=== PATIENT | female | born 1965 | race Caucasian/White ===

== ENCOUNTER 2018-11-04 10:36 | Inpatient (IN) ==
[2018-11-04 11:05] LABS: Basophils # 0.1 10*3/uL (0.0-0.2); Basophils % 0.8 % (0.0-0.8); Eosinophils % 0.1 % (0.00-10.9); Hematocrit 45.1 VOL% (35.7-47.0); Hemoglobin 14.9 GM/DL (12.0-16.0); Immature Granulocytes % 0.3 %; Immature Granulocytes Absolute 0.03 #; Lymphocytes # 1.7 10*3/uL (1.4-4.0); Lymphocytes % 17.3 % (21.3-54.2); Mean Corpuscular Hemoglobin 31 PG (27-34); Mean Corpuscular Volume 94.5 FL (87-102); Mean Platelet Volume 9.6 FL (9.6-12.0); Monocytes # 0.8 10*3/uL (0.11-0.8); Monocytes % 8.5 % (1.7-12.7); Platelet Count 305 T/CUMM (130-400); Red Blood Count 4.77 MC/CUMM (3.8-5.5); Red Cell Distribution Width 12.9 % (9.3-17.3); White Blood Count 9.6 T/CUMM (4-12)
[2018-11-04 11:23] LABS: Bilirubin,Total 0.8 MG/DL (0.2-1.0); Calcium 8.9 MG/DL (8.5-10.1); Osmolality,Calculated 276.5 MOS/KG (273-304); Total Protein 8.1 G/DL (6.4-8.3)
[2018-11-04 11:28] LABS: Apearance,Urine Slightly Hazy (Clear); Bacteria,Urine Occasional /HPF (Few); Bilirubin,Urine Negative (Negative); Blood, Urine Negative (Negative); Glucose,Urine (UA) Negative (Negative); Hyaline Casts,Urine 1 /LPF (0-3); Ketones,Urine 20 mg/dL (Negative); Mucus,Urine Occasional /LPF (Occasional); Nitrite,Urine Negative (Negative); Protein,Urine Negative; RBC,Urine 1 /HPF (0-4); Squamous Epithelial Cell,Urine Occasional /HPF (0-10); Urine Color Yellow (Yellow); Urine Specific Gravity 1.024 (1.001-1.035); Urine Urobilinogen < 2.0 EU/DL (0.2-1.0); WBC,Urine 7 /HPF (0-6)
[2018-11-04] MEDS ORDERED: GENTAMICIN INJ 120 MG in SODIUM CHLORIDE 0.9% 100 ML IV STA (12:41)
[2018-11-04] MEDS ORDERED: SODIUM CHLORIDE 0.9% 1,000 ML IV STA (13:04)
[2018-11-04] MEDS ORDERED: ACETAMINOPHEN 325 MG TABLET PO PRN (15:12)
[2018-11-04] MEDS: FAMOTIDINE 20 MG TABLET PO SCH (20:42)
[2018-11-04] MEDS: AZITHROMYCIN INJ 500 MG in SODIUM CHLORIDE 0.9% 250 ML IV SCH (20:45)
[2018-11-04] MEDS: SIMVASTATIN 10 MG TABLET PO SCH (21:00)
[2018-11-05 06:28] LABS: Basophils # 0.1 10*3/uL (0.0-0.2); Eosinophils % 0.6 % (0.00-10.9); Hematocrit 43.3 VOL% (35.7-47.0); Hemoglobin 13.8 GM/DL (12.0-16.0); Immature Granulocytes % 0.3 %; Immature Granulocytes Absolute 0.02 #; Lymphocytes # 1.6 10*3/uL (1.4-4.0); Lymphocytes % 21.3 % (21.3-54.2); Mean Corpuscular HGB Conc 31.9 GM/DL (32-36); Mean Corpuscular Hemoglobin 31 PG (27-34); Mean Corpuscular Volume 97.1 FL (87-102); Mean Platelet Volume 9.9 FL (9.6-12.0); Monocytes # 0.8 10*3/uL (0.11-0.8); Monocytes % 11.4 % (1.7-12.7); Neutrophils # 4.8 10*3/uL (1.4-7.4); Neutrophils % 65.4 % (38.7-73.9); Platelet Count 284 T/CUMM (130-400); Red Blood Count 4.46 MC/CUMM (3.8-5.5); Red Cell Distribution Width 13.2 % (9.3-17.3); White Blood Count 7.3 T/CUMM (4-12)
[2018-11-05 06:51] LABS: Albumin 3.4 G/DL (3.4-5.0); Bilirubin,Total 0.7 MG/DL (0.2-1.0); Osmolality,Calculated 285.8 MOS/KG (273-304); Potassium 3.9 MMOL/L (3.5-5.1); Risk Ratio 4.12; Thyroid Stimulating Hormone 0.873 uIU/ml (0.358-3.74); Total Protein 7.5 G/DL (6.4-8.3); VLDL CHOLESTEROL 17.4 MG/DL
[2018-11-05] MEDS ORDERED: SALMETEROL 50 MCG/PUFF DISKUS 28 DOSE INH SCH ×2 (09:00→21:00)
[2018-11-05] MEDS ORDERED: METHYLPHENIDATE 5 MG TABLET PO SCH (09:00)
[2018-11-05] MEDS: SERTRALINE 100 MG TABLET PO SCH (09:48)
[2018-11-05] MEDS: POTASSIUM CHLORIDE 10 MEQ TABLET PO SCH (09:48)
[2018-11-05] MEDS: FUROSEMIDE 20 MG TABLET PO SCH (09:48)
[2018-11-05] MEDS: FAMOTIDINE 20 MG TABLET PO SCH ×2 (09:48→20:30)
[2018-11-05] MEDS: METOPROLOL SUCCINATE XL 25 MG TABLET PO SCH (09:48)
[2018-11-05] MEDS: MONTELUKAST 10 MG TABLET PO SCH (09:48)
[2018-11-05] MEDS: tiZANidine 4 MG TABLET PO PRN (12:30)
[2018-11-05] MEDS: traZODone 50 MG TABLET PO PRN (20:30)
[2018-11-05] MEDS: SIMVASTATIN 10 MG TABLET PO SCH (20:30)
[2018-11-05] MEDS: AZITHROMYCIN INJ 500 MG in SODIUM CHLORIDE 0.9% 250 ML IV SCH (20:34)
[2018-11-06 06:21] LABS: Basophils # 0.1 10*3/uL (0.0-0.2); Basophils % 0.9 % (0.0-0.8); Eosinophils # 0.1 10*3/uL (0.0-0.87); Eosinophils % 1.8 % (0.00-10.9); Hematocrit 41.6 VOL% (35.7-47.0); Hemoglobin 13.4 GM/DL (12.0-16.0); Immature Granulocytes % 0.3 %; Immature Granulocytes Absolute 0.02 #; Lymphocytes # 1.9 10*3/uL (1.4-4.0); Lymphocytes % 24.5 % (21.3-54.2); Mean Corpuscular HGB Conc 32.2 GM/DL (32-36); Mean Corpuscular Hemoglobin 31 PG (27-34); Mean Corpuscular Volume 96.3 FL (87-102); Mean Platelet Volume 10.4 FL (9.6-12.0); Monocytes # 0.8 10*3/uL (0.11-0.8); Monocytes % 10.1 % (1.7-12.7); Neutrophils % 62.4 % (38.7-73.9); Platelet Count 292 T/CUMM (130-400); Red Blood Count 4.32 MC/CUMM (3.8-5.5); Red Cell Distribution Width 13.2 % (9.3-17.3); White Blood Count 7.9 T/CUMM (4-12)
[2018-11-06 06:37] LABS: Albumin 3.4 G/DL (3.4-5.0); Bilirubin,Total 0.9 MG/DL (0.2-1.0); Osmolality,Calculated 283.1 MOS/KG (273-304); Potassium 3.7 MMOL/L (3.5-5.1); Total Protein 7.3 G/DL (6.4-8.3)
[2018-11-06] MEDS: MONTELUKAST 10 MG TABLET PO SCH (10:07)
[2018-11-06] MEDS: FAMOTIDINE 20 MG TABLET PO SCH ×2 (10:07→20:49)
[2018-11-06] MEDS: POTASSIUM CHLORIDE 10 MEQ TABLET PO SCH (10:07)
[2018-11-06] MEDS: METOPROLOL SUCCINATE XL 25 MG TABLET PO SCH (10:08)
[2018-11-06] MEDS: FUROSEMIDE 20 MG TABLET PO SCH (10:08)
[2018-11-06] MEDS: SERTRALINE 100 MG TABLET PO SCH (10:08)
[2018-11-06] MEDS ORDERED: POLYVINYL ALCOHOL 1.4% OPH SOLN 15 ML BOTTLE LEFT EYE PRN (12:27)
[2018-11-06] MEDS: VANCOMYCIN INJ 1,000 MG in SODIUM CHLORIDE 0.9% 250 ML IV SCH (15:07)
[2018-11-06] MEDS: AZITHROMYCIN 250 MG TABLET PO SCH (20:48)
[2018-11-06] MEDS: tiZANidine 4 MG TABLET PO PRN (20:49)
[2018-11-06] MEDS: SIMVASTATIN 10 MG TABLET PO SCH (20:49)
[2018-11-06] MEDS: traZODone 50 MG TABLET PO PRN (20:49)
[2018-11-07] MEDS: VANCOMYCIN INJ 1,000 MG in SODIUM CHLORIDE 0.9% 250 ML IV SCH ×2 (03:53→14:20)
[2018-11-07 04:20] LABS: Basophils # 0.1 10*3/uL (0.0-0.2); Basophils % 1.1 % (0.0-0.8); Eosinophils # 0.2 10*3/uL (0.0-0.87); Eosinophils % 3.3 % (0.00-10.9); Hematocrit 42.7 VOL% (35.7-47.0); Hemoglobin 13.9 GM/DL (12.0-16.0); Immature Granulocytes % 0.1 %; Immature Granulocytes Absolute 0.01 #; Lymphocytes # 1.8 10*3/uL (1.4-4.0); Lymphocytes % 24.4 % (21.3-54.2); Mean Corpuscular HGB Conc 32.6 GM/DL (32-36); Mean Corpuscular Hemoglobin 32 PG (27-34); Mean Platelet Volume 10.1 FL (9.6-12.0); Monocytes # 0.8 10*3/uL (0.11-0.8); Monocytes % 10.4 % (1.7-12.7); Neutrophils # 4.5 10*3/uL (1.4-7.4); Neutrophils % 60.7 % (38.7-73.9); Platelet Count 273 T/CUMM (130-400); Red Cell Distribution Width 13.2 % (9.3-17.3); White Blood Count 7.4 T/CUMM (4-12)
[2018-11-07 04:48] LABS: Albumin 3.4 G/DL (3.4-5.0); Bilirubin,Total 0.8 MG/DL (0.2-1.0); Calcium 8.6 MG/DL (8.5-10.1); Potassium 3.6 MMOL/L (3.5-5.1); Total Protein 7.1 G/DL (6.4-8.3)
[2018-11-07] MEDS: MONTELUKAST 10 MG TABLET PO SCH (08:46)
[2018-11-07] MEDS: tiZANidine 4 MG TABLET PO PRN ×2 (08:46→21:09)
[2018-11-07] MEDS: FAMOTIDINE 20 MG TABLET PO SCH ×2 (08:46→21:08)
[2018-11-07] MEDS: FUROSEMIDE 20 MG TABLET PO SCH (08:46)
[2018-11-07] MEDS: METOPROLOL SUCCINATE XL 25 MG TABLET PO SCH (08:46)
[2018-11-07] MEDS: POTASSIUM CHLORIDE 10 MEQ TABLET PO SCH (08:46)
[2018-11-07] MEDS: SERTRALINE 100 MG TABLET PO SCH (08:51)
[2018-11-07] MEDS: SIMVASTATIN 10 MG TABLET PO SCH (21:08)
[2018-11-07] MEDS: AZITHROMYCIN 250 MG TABLET PO SCH (21:08)
[2018-11-07] MEDS: traZODone 50 MG TABLET PO PRN (21:09)
[2018-11-08] MEDS: VANCOMYCIN INJ 1,000 MG in SODIUM CHLORIDE 0.9% 250 ML IV SCH (04:20)
[2018-11-08] MEDS: SERTRALINE 100 MG TABLET PO SCH (09:00)
[2018-11-08] MEDS: METOPROLOL SUCCINATE XL 25 MG TABLET PO SCH (09:00)
[2018-11-08] MEDS: FAMOTIDINE 20 MG TABLET PO SCH (09:00)
[2018-11-08] MEDS: FUROSEMIDE 20 MG TABLET PO SCH (09:00)
[2018-11-08] MEDS: POTASSIUM CHLORIDE 10 MEQ TABLET PO SCH (09:00)
[2018-11-08] MEDS: MONTELUKAST 10 MG TABLET PO SCH (09:00)
[2018-11-08 11:43] VITALS: BP 128/74
== END 2018-11-08 11:58 | disposition home or self-care (01) | DRG 690 ==
LOC: N.ED 10:36 → N.2W 14:11 → SUATTDRO 14:11 → N.2W 16:27 → N.5E 18:13
PROVIDERS: ADMIT Internal Medicine; ATTEND Internal Medicine